=== PATIENT | male | born 1930 | race Caucasian/White ===

== ENCOUNTER 2018-02-05 10:48 | Inpatient (IN) ==
--- NOTE | 2018-02-05 11:39 | XR ---
EXAM DATE: 02/05/2018 11:36 AM EST AGE/SEX: 87 years / Male INDICATIONS: . Short of breath CLINICAL DATA: This is the patient's initial encounter. Patient reports that signs and symptoms have been present for 2 days and indicates a pain score of 0/10. MEDICAL/SURGICAL HISTORY: Cardiovascular disease. None. COMPARISON: No prior exams available for comparison. FINDINGS: Frontal and lateral views of the chest demonstrate a normal-sized cardiac silhouette with mildly tort uous and calcified descending thoracic aorta. There are areas of interstitial prominence bilaterally primarily in the lower lung zones. No pleural effusion, airspace consolidation, or pneumothorax is id entified. The bones and soft tissues demonstrate no acute finding. There are degenerative changes of the thoracic spine. CONCLUSION: No acute cardiopulmonary abnormality is identified. Electronically signed by: Emil Balderas MD Board Certified Radiologist 02/05/2018 11:38 AM EST
[2018-02-05 12:03] LABS: Baso # (Auto) 0.1 th/mm3 (0.0-0.2); Baso % (Auto) 0.6 % (0.0-2.0); Eos # (Auto) 0.2 th/mm3 (0.0-0.4); Eos % (Auto) 2.3 % (0.0-4.0); Hematocrit 36.4 % (39.0-51.0); Hemoglobin 12.6 gm/dL (13.0-17.0); Lymph # (Auto) 0.9 th/mm3 (1.0-4.8); Lymph % (Auto) 9.7 % (9.0-44.0); Mean Corpuscular HGB Conc 34.6 % (32.0-36.0); Mean Corpuscular Hemoglobin 28.9 pg (27.0-34.0); Mean Corpuscular Volume 83.7 fL (80.0-100.0); Mean Platelet Volume 8.2 fL (7.0-11.0); Mono # (Auto) 0.7 th/mm3 (0.0-0.9); Mono % (Auto) 7.4 % (0.0-8.0); Neut # (Auto) 7.5 th/mm3 (1.8-7.7); Platelet Count 280 th/mm3 (150-450); Red Blood Count 4.35 mil/mm3 (4.50-5.90); White Blood Count 9.4 th/mm3 (4.0-11.0)
[2018-02-05 12:15] LABS: Alanine Aminotransferase 16 U/L (12-78); Albumin 3.8 g/dL (3.4-5.0); Anion Gap 10 meq/L (5-15); Aspartate Aminotransferase 19 U/L (15-37); Blood Urea Nitrogen 25 mg/dL (7-18); Carbon Dioxide 25.2 meq/L (21.0-32.0); Chloride 108 meq/L (98-107); Glomerular Filtration Rate 60 mL/min (>89); Glucose,Random 134 mg/dL (74-106); Potassium 3.7 meq/L (3.5-5.1); Sodium 143 meq/L (136-145)
[2018-02-05 12:19] LABS: Alkaline Phosphatase 100 U/L (45-117); Total Protein 7.8 g/dL (6.4-8.2)
--- NOTE | 2018-02-05 13:40 | ED ---
HPI General Chief complaint: Altered Mental Status Stated complaint: Poss AMS Time Seen by Provider: 02/05/18 11:04 Source: patient Mode of arrival: ambulatory Limitations: no limitations History of Present Illness HPI narrative: Patient is an 87-year-old male, past medical history significant for hypertension, hyperlipidemia, COPD without current oxygen requirement at home (though told by a physician once that he needed it) who presents with complaint of hypoxia. He went to his primary care doctor today for a routine exam. There he was found to have a pulse ox in the 80s and was sent here to be evaluated. They were also concerned about possible confusion the patient's states that he is at his baseline at this time. The patient adamantly denies chest pain, shortness of breath, leg swelling, immobilization. He does have a sporadic nonproductive cough but no fever nor chills. He adamantly states that he feels "just fine" and wants to go home. Onset (ago): unknown Severity: mild Relieving factors: none Exacerbating factors: none Treatments prior to arrival: Reports none Related Data Home Medications Medication Instructions Recorded Confirmed alprazolam 0.125 mg PO HS 02/05/18 02/05/18 budesonide-formoterol [Symbicort] 2 puff INHALATION BID 02/05/18 02/05/18 cholecalciferol (vitamin D3) 1,000 unit PO DAILY 02/05/18 02/05/18 ferrous sulfate 324 mg PO DAILY 02/05/18 02/05/18 lisinopril 10 mg PO DAILY 02/05/18 02/05/18 mirabegron [Myrbetriq] 25 mg PO DAILY 02/05/18 02/05/18 sertraline 50 mg PO DAILY 02/05/18 02/05/18 simvastatin 40 mg PO QPM 02/05/18 02/05/18 tamsulosin 0.4 mg PO DAILY 02/05/18 02/05/18 theophylline 400 mg PO DAILY 02/05/18 02/05/18 tiotropium bromide [Spiriva with 1 cap INHALATION DAILY 02/05/18 02/05/18 HandiHaler] Allergies Allergy/AdvReac Type Severity Reaction Status Date / Time No Known Allergies Allergy Verified 02/05/18 10:55 Review of Systems ROS: all other systems reviewed are negative [facility] Medical History Medical History Brain bleed (Acute) COPD (chronic obstructive pulmonary disease) (Acute) Emphysema lung (Acute) HTN (hypertension) (Acute) High cholesterol (Acute) Surgical History Surgical History H/O heart artery stent (Acute) Family History Family History Other Patient denies significant medical history Social History Social History Second Hand Smoke Exposure: Yes Smoking Status: Former smoker Tobacco Type: Cigarettes How Often Do You Have a Drink Containing Alcohol: Never Recent Travel in [facility] within the Last 8 Weeks: No Recent Out of Country Travel within the Last 8 Weeks: No Immunization History Tetanus Immunization: Unsure Exam Narrative Exam Narrative: GENERAL: Well-appearing male in no acute distress on nasal cannula SKIN: Focused skin assessment warm/dry. HEAD: Atraumatic. Normocephalic. EYES: Pupils equal and round. No scleral icterus. No injection or drainage. ENT: No nasal bleeding or discharge. Mucous membranes pink and moist. NECK: Trachea midline. No JVD. CARDIOVASCULAR: Regular rate and rhythm. No murmur appreciated. Intact and equal peripheral pulses. RESPIRATORY: No accessory muscle use. Clear to auscultation. Breath sounds equal bilaterally. GASTROINTESTINAL: Abdomen soft, non-tender, nondistended. Hepatic and splenic margins not palpable. MUSCULOSKELETAL: No obvious deformities. No clubbing. No cyanosis. No edema. NEUROLOGICAL: Awake and alert. No obvious cranial nerve deficits. Motor grossly within normal limits. Normal sensation. Normal speech. PSYCHIATRIC: Appropriate mood and affect; insight and judgment normal. Course Initial Documented Vital Signs Temperature 98.3 F 02/05/18 10:51 Pulse Rate 95 H 02/05/18 10:51 Respiratory Rate 20 02/05/18 10:51 Blood Pressure 124/60 02/05/18 10:51 Pulse Oximetry 89 L 02/05/18 10:51 Last Documented Vital Signs Temperature 98.3 F 02/05/18 10:51 Pulse Rate 84 02/05/18 11:51 Respiratory Rate 16 02/05/18 11:51 Blood Pressure 129/63 02/05/18 11:15 Pulse Oximetry 92 L 02/05/18 12:29 Medical Decision Making MDM Narrative Medical decision making narrative: Patient is an 87-year-old male who presents with complaint of nausea. He states he feels well and is asymptomatic. On room air his pulse ox was approximately 85 thus he is requiring approximately 2- 3 L of oxygen via nasal cannula. He has been told this once before but states another physician told him he did not need it. Labs, chest x-ray are unremarkable. I discussed the case with Dr. Devon benites regarding admission for his hypoxia. After discussing it with case management Dr. Osorio he recommended that the patient be discharged home with oxygen as he has been asymptomatic and feels well. 1350: CM has informed me that the patient cannot be discharged from the ED with oxygen. The patient has been placed in observation by Dr Osorio for his hypoxia. Medical Screen Exam Complete: Yes Emergency Medical Condition: Yes Differential Diagnosis Differential Diagnosis: Differential diagnosis includes but is not limited to pneumothorax, pneumonia, progression of COPD. Medical Records Medical records reviewed: Yes I reviewed the patient's medical records. Lab Data Lab results reviewed: Yes I reviewed the patient's lab results. Result diagrams: 02/05/18 11:15 02/05/18 11:15 Lab Results 02/05/18 02/05/18 02/05/18 Range/Units 11:15 11:15 11:15 WBC 9.4 (4.0-11.0) th/mm3 RBC 4.35 L (4.50-5.90) mil/mm3 Hgb 12.6 L (13.0-17.0) gm/dL Hct 36.4 L (39.0-51.0) % MCV 83.7 (80.0-100.0) fL MCH 28.9 (27.0-34.0) pg MCHC 34.6 (32.0-36.0) % RDW 16.0 (11.6-17.2) % Plt Count 280 (150-450) th/mm3 MPV 8.2 (7.0-11.0) fL Neut % (Auto) 80.0 H (16.0-70.0) % Lymph % (Auto) 9.7 (9.0-44.0) % [place] % (Auto) 7.4 (0.0-8.0) % Eos % (Auto) 2.3 (0.0-4.0) % Baso % (Auto) 0.6 (0.0-2.0) % Neut # (Auto) 7.5 (1.8-7.7) th/mm3 Lymph # (Auto) 0.9 L (1.0-4.8) th/mm3 [place] # (Auto) 0.7 (0.0-0.9) th/mm3 Eos # (Auto) 0.2 (0.0-0.4) th/mm3 Baso # (Auto) 0.1 (0.0-0.2) th/mm3 WBC Differential . Differential Comment Auto diff final Sodium 143 (136-145) meq/L Potassium 3.7 (3.5-5.1) meq/L Chloride 108 H (98-107) meq/L Carbon Dioxide 25.2 (21.0-32.0) meq/L Anion Gap 10 (5-15) meq/L BUN 25 H (7-18) mg/dL Creatinine 1.15 (0.60-1.30) mg/dL Estimated GFR 60 L (>89) mL/min Random Glucose 134 H (74-106) mg/dL Calcium 9.0 (8.5-10.1) mg/dL Total Bilirubin 0.4 (0.2-1.0) mg/dL AST 19 (15-37) U/L ALT 16 (12-78) U/L Alkaline Phosphatase 100 (45-117) U/L Troponin I Less than 0.02 L (0.02-0.05) ng/mL B-Natriuretic Peptide 60 (0-100) pg/mL Total Protein 7.8 (6.4-8.2) g/dL Albumin 3.8 (3.4-5.0) g/dL Imaging Data Attestation: I personally reviewed and interpreted this imaging study as follows : Radiologist's impression: Chest X-Ray 02/05/18 11:16 CONCLUSION: No acute cardiopulmonary abnormality is identified. ECG Data EKG Prior to Arrival: No Attestation: I personally reviewed and interpreted this ECG as follows: Discharge Plan Discharge Disposition Patient Disposition: ED Admit(ED Internal Use Only) Discharge Condition Condition: Stable Discharge Order Discharge Orders: ED Use Only Admit Order (Routine); Ordered 02/05/18 Ordered By: Keturah Nelson Discharge Details Diagnosis: COPD with hypoxia Physicians Team ED Provider: Keturah Nelson Primary Care Provider: [facility] 's Attending Provider: Tony Osorio Status ED Status: With Doctor
--- NOTE | 2018-02-05 14:24 | P.HP ---
History of Present Illness Primary Care Physician: [facility] History of Present Illness: 87-year-old white male being admitted for acute hypoxic respiratory failure. Patient was in his usual state of health until he attended his scheduled outpatient PCP appointment today where he was noted to be hypoxic around 83%. He was sent over to the ED for further evaluation. Patient reports having dyspnea on exertion and some level of fatigue, but denies having any chest pain. His is at the bedside says that he is other major complaint that is chronic is pains in his shoulders and calves for which he is seeing his PCP for. reports his been compliant with his Symbicort and Spiriva. Says that he has seen a carbon furnace operator in the past, coming out of the jail earlier this year he was told he needed oxygen but when [facility]. Social history tells that the patient is a lifelong history of smoking 75 years. Denies drinking. Lives with his . Review of Systems All other systems reviewed negative except as stated in HPI PMFSH - History History Provided By: Patient, Family Member - Medical History Medical History: Medical History (Last Reviewed 02/05/18 @ 14:22 by Tony Osorio MD) Brain bleed COPD (chronic obstructive pulmonary disease) Emphysema lung HTN (hypertension) High cholesterol - Surgical History Surgical History: Surgical History (Last Reviewed 02/05/18 @ 14:22 by Tony Osorio MD) H/O heart artery stent - Family History Family History: Family History (Last Updated 02/05/18 @ 14:22 by Tony Osorio MD) Other Patient denies significant medical history - Social History I have reviewed the patient's Social History: Yes - Tobacco History Second Hand Smoke Exposure: Yes Smoking Status: Former smoker Tobacco Type: Cigarettes - Alcohol History How Often Do You Have a Drink Containing Alcohol: Never - Travel History Recent Travel in the [place] Within the Last 8 Weeks: No Recent Travel Out of the Country Within the Last 8 Weeks: No - Immunization History Tetanus Immunization: Unsure Medications and Allergies Active Medications: Active Medications Albuterol (Albuterol Neb (Prn)) 1.25 mg NEB Q2HR NEB PRN PRN Reason: WHEEZING Alprazolam (Xanax) 0.125 mg PO HS [facility] Budesonide/Formoterol Fumarate (Symbicort 160/4.5 Mcg Inh) 2 puff INH BID [facility] Non-Formulary Medication (Theophylline [Theophylline]) 400 mg PO DAILY [facility] Sertraline HCl (Zoloft) 50 mg PO DAILY [facility] Sodium Chloride (Ns Flush) 2 ml IV.FLUSH BID [facility] Sodium Chloride (Ns Flush) 2 ml IV.FLUSH PRN PRN PRN Reason: FLUSH AFTER USING IV ACCESS Tiotropium Lucile (Spiriva 18 Mcg Inh) mcg INH DAILY [facility] Allergies Allergy/AdvReac Type Severity Reaction Status Date / Time No Known Allergies Allergy Verified 02/05/18 10:55 Home Medications Medication Instructions Recorded Confirmed Type alprazolam 0.125 mg PO HS 02/05/18 02/05/18 History budesonide-formoterol [Symbicort] 2 puff INHALATION BID 02/05/18 02/05/18 History cholecalciferol (vitamin D3) 1,000 unit PO DAILY 02/05/18 02/05/18 History ferrous sulfate 324 mg PO DAILY 02/05/18 02/05/18 History lisinopril 10 mg PO DAILY 02/05/18 02/05/18 History mirabegron [Myrbetriq] 25 mg PO DAILY 02/05/18 02/05/18 History sertraline 50 mg PO DAILY 02/05/18 02/05/18 History simvastatin 40 mg PO QPM 02/05/18 02/05/18 History tamsulosin 0.4 mg PO DAILY 02/05/18 02/05/18 History theophylline 400 mg PO DAILY 02/05/18 02/05/18 History tiotropium bromide [Spiriva with 1 cap INHALATION DAILY 02/05/18 02/05/18 History HandiHaler] Exam Vital signs: Vital Signs 02/05/18 10:51 02/05/18 11:08 02/05/18 11:15 Temperature 98.3 F Pulse Rate 95 H 79 Respiratory Rate 20 22 Blood Pressure 124/60 129/63 Pulse Oximetry 89 L 95 02/05/18 11:39 02/05/18 11:51 02/05/18 12:29 Temperature Pulse Rate 82 84 Respiratory Rate 16 Blood Pressure Pulse Oximetry 93 L 92 L Intake & Output 02/04/18 02/05/18 02/05/18 18:59 06:59 18:59 Weight 53.524 kg Narrative: VS: afebrile GENERAL: Well-nourished thin elderly male, awake, no acute distress, appears slightly fatigued SKIN: Warm and dry. EYES: Pupils equal and round. No scleral icterus. No injection or drainage. ENT: No nasal bleeding or discharge. Mucous membranes pink and moist. CARDIOVASCULAR: Regular rate and rhythm. no murmurs RESPIRATORY: No accessory muscle use. Clear to auscultation. Breath sounds equal bilaterally. GASTROINTESTINAL: Abdomen soft, non-tender, nondistended. Extremities: No clubbing, cyanosis, or edema. No obvious deformities. MUSCULOSKELETAL: grossly intact ROM with 5/5 strength in upper extremities proximally, 4/5 strength in proximal hip flexors bilaterally NEUROLOGICAL: Awake and alert. No obvious cranial nerve deficits. No facial droop nor slurred speech noted. PSYCHIATRIC: Appropriate mood and affect; insight and judgment normal. Results - Labs CBC & Chem 7: 02/05/18 11:15 02/05/18 11:15 Labs: Laboratory Results - last 24 hr 02/05/18 02/05/18 02/05/18 11:15 11:15 11:15 WBC 9.4 RBC 4.35 L Hgb 12.6 L Hct 36.4 L MCV 83.7 MCH 28.9 MCHC 34.6 RDW 16.0 Plt Count 280 MPV 8.2 Neut % (Auto) 80.0 H Lymph % (Auto) 9.7 [place] % (Auto) 7.4 Eos % (Auto) 2.3 Baso % (Auto) 0.6 Neut # (Auto) 7.5 Lymph # (Auto) 0.9 L [place] # (Auto) 0.7 Eos # (Auto) 0.2 Baso # (Auto) 0.1 WBC Differential . Differential Comment Auto diff final Sodium 143 Potassium 3.7 Chloride 108 H Carbon Dioxide 25.2 Anion Gap 10 BUN 25 H Creatinine 1.15 Estimated GFR 60 L Random Glucose 134 H Calcium 9.0 Total Bilirubin 0.4 AST 19 ALT 16 Alkaline Phosphatase 100 Troponin I Less than 0.02 L B-Natriuretic Peptide 60 Total Protein 7.8 Albumin 3.8 - Imaging Impressions Chest X-Ray 02/05/18 11:16 CONCLUSION: No acute cardiopulmonary abnormality is identified. Caprini VTE Risk Assessment Caprini VTE Risk Assessment: Moderate/High Risk (score >= 2) Caprini Risk Assessment Model: Point Value = 1 Point Value = 2 Point Value = 3 Point Value = 5 Age 41-60 Minor surgery BMI > 25 kg/m2 Swollen legs Varicose veins or History of unexplained or recurrent spontaneous Oral contraceptives or hormone replacement Sepsis (< 1 month) Serious lung disease, including pneumonia (< 1 month) Abnormal pulmonary function Acute myocardial infarction Congestive heart failure (< 1 month) History of inflammatory bowel disease Medical patient at bed rest Age 61-74 Arthroscopic surgery Major open surgery (> 45 min) Laparoscopic surgery (> 45 min) Malignancy Confined to bed (> 72 hours) Immobilizing plaster cast Central venous access Age >= 75 History of VTE Family history of VTE Factor V Leiden Prothrombin [id number] Lupus anticoagulant Anticardiolipin antibodies Elevated serum homocysteine Heparin-induced thrombocytopenia Other congenital or acquired thrombophilia Stroke (< 1 month) Elective arthroplasty Hip, pelvis, or leg fracture Acute spinal cord injury (< 1 month) Prophylaxis Regimen: Total Risk Factor Score Risk Level Prophylaxis Regimen 0-1 Low Early ambulation 2 Moderate Order ONE of the following: *Sequential Compression Device (SCD) *Heparin 5000 units SQ BID 3-4 Higher Order ONE of the following medications: *Heparin 5000 units SQ TID *Enoxaparin/Lovenox 40 mg SQ daily (WT < 150 kg, CrCl > 30 mL/min) *Enoxaparin/Lovenox 30 mg SQ daily (WT < 150 kg, CrCl > 10-29 mL/min) *Enoxaparin/Lovenox 30 mg SQ BID (WT < 150 kg, CrCl > 30 mL/min) AND/OR *Sequential Compression Device (SCD) 5 or more Highest Order ONE of the following medications: *Heparin 5000 units SQ TID (Preferred with Epidurals) *Enoxaparin/Lovenox 40 mg SQ daily (WT < 150 kg, CrCl > 30 mL/min) *Enoxaparin/Lovenox 30 mg SQ daily (WT < 150 kg, CrCl > 10-29 mL/min) *Enoxaparin/Lovenox 30 mg SQ BID (WT < 150 kg, CrCl > 30 mL/min) AND *Sequential Compression Device (SCD) Assessment and Plan - Plan 87-year-old white male being admitted for possible acute on chronic hypoxic respiratory failure Possible acute on chronic hypoxic respiratory failure 83% in PCPs office today, on 88% today on pulse oximetry likely secondary to emphysema/COPD Symptomatic w/ exertion, give 1x solumedrol, dc with prednisone taper -we will supply oxygen for now until home oxygen supply secured after patient wonders walk test COPD Continue home Spiriva and Symbicort -Albuterol as needed for wheezing -po prednisone taper upon discharge Coronary artery disease Hyperlipidemia Hypertension -Continue home lisinopril and simvastatin BPH Urinary incontinence Continue home Myrbetriq and Flomax Mild memory impairment -check b12 and TSH levels Shoulder and calf pains Stable at this time, likely musculoskeletal or neurogenic, continue follow-up w / PCP outpt SCDs given hx of brain bleed
[2018-02-05] MEDS ORDERED: MethylPREDNISolone Sod Succinate Inj 125 MG/2 ML Vial IV.PUSH ONE (16:00)
--- NOTE | 2018-02-05 17:41 | ECG ---
Date Performed: 02/05/2018 Time Performed: 11:06:20 PTAGE: 87 years EKG: Sinus rhythm MINOR NONSPECIFIC ST WAVE CHANGE ELECTRICAL BASELINE ARTIFACT NORMAL ECG NO PREVIOUS TRACING DOCTOR: Elian Ayon Interpretating Date/Time 02/05/2018 17:40:33
[2018-02-05] MEDS ORDERED: ALPRAZolam 0.25 MG Tablet PO SCH (21:00)
[2018-02-05] MEDS: Budesonide-Formoterol 160/4.5 MCG 6 GM Inhaler INH SCH (23:07)
[2018-02-06] MEDS ORDERED: Tiotropium Bromide 18 MCG/ACT Inhaler INH SCH (09:00)
[2018-02-06] MEDS ORDERED: Tolterodine Tartrate LA 2 MG Capsule PO SCH (09:00)
[2018-02-06] MEDS ORDERED: predniSONE 20 MG Tablet PO SCH (09:00)
[2018-02-06] MEDS ORDERED: Sertraline 50 MG Tablet PO SCH (09:00)
[2018-02-06] MEDS ORDERED: Theophylline ER 24 HR 200 MG Capsule PO SCH (09:00)
[2018-02-06] MEDS ORDERED: Lisinopril 10 MG Tablet PO SCH (09:00)
[2018-02-06] MEDS ORDERED: Ferrous Sulfate 325 MG Tablet PO SCH (09:00)
--- NOTE | 2018-02-06 10:20 | P.PNIM ---
Subjective Interval history: Follow-up visit hypoxia, COPD exacerbation. Patient seen and examined today. at the bedside. States that breathing has improved significantly compared to yesterday. Patient states that he is compliant with his medications. Denies any sputum production. Occasional cough. Denies any increasing shortness of breath or dyspnea. On O2 nasal cannula right now. Discussed with patient and that he will need a walk test. Possibly will be needing oxygen use at home. States that he has nebulizers at home. And [facility]. Denies pain and discomfort. Denies chest pain, palpitations, headaches, dizziness. Denies fevers, chills, n/v/d. Denies dysuria. Physical Exam Vital signs: Vital Signs 02/05/18 10:51 02/05/18 11:08 02/05/18 11:15 Temperature 98.3 F Pulse Rate 95 H 79 Respiratory Rate 20 22 Blood Pressure 124/60 129/63 Pulse Oximetry 89 L 95 Pulse Oximetry [Resting on Room Air] Pulse Oximetry [Resting with Oxygen] 02/05/18 11:39 02/05/18 11:51 02/05/18 12:29 Temperature Pulse Rate 82 84 Respiratory Rate 16 Blood Pressure Pulse Oximetry 93 L 92 L Pulse Oximetry [Resting on Room Air] Pulse Oximetry [Resting with Oxygen] 02/05/18 13:00 02/05/18 14:00 02/05/18 15:01 Temperature Pulse Rate 82 82 Respiratory Rate 20 19 Blood Pressure 124/71 Pulse Oximetry 92 L 88 L Pulse Oximetry [Resting on Room Air] 85 L Pulse Oximetry [Resting with Oxygen] 91 L 02/05/18 15:35 02/05/18 16:00 02/05/18 17:00 Temperature Pulse Rate 80 80 Respiratory Rate Blood Pressure 137/73 142/78 H Pulse Oximetry 93 L 95 95 Pulse Oximetry [Resting on Room Air] Pulse Oximetry [Resting with Oxygen] 02/05/18 18:27 02/05/18 20:00 02/06/18 01:47 Temperature 98.3 F 97.8 F Pulse Rate 85 89 80 Respiratory Rate 16 18 18 Blood Pressure 151/80 H 134/75 134/65 Pulse Oximetry 92 L 90 L Pulse Oximetry [Resting on Room Air] Pulse Oximetry [Resting with Oxygen] 02/06/18 05:40 02/06/18 08:00 Temperature 97.5 F L 97.4 F L Pulse Rate 66 72 Respiratory Rate 18 20 Blood Pressure 133/62 128/61 Pulse Oximetry 93 L 95 Pulse Oximetry [Resting on Room Air] Pulse Oximetry [Resting with Oxygen] Intake & Output 02/05/18 02/06/18 02/06/18 18:59 06:59 18:59 Weight 53.524 kg 51.5 kg Other: # Voids 1 Narrative: VS: afebrile GENERAL: Well-nourished thin elderly male, awake, no acute distress, appears slightly fatigued SKIN: Warm and dry. EYES: Pupils equal and round. No scleral icterus. No injection or drainage. ENT: No nasal bleeding or discharge. Mucous membranes pink and moist. CARDIOVASCULAR: Regular rate and rhythm. no murmurs RESPIRATORY: No accessory muscle use. Clear to auscultation. Breath sounds equal bilaterally. No wheezing. GASTROINTESTINAL: Abdomen soft, non-tender, nondistended. Extremities: No clubbing, cyanosis, or edema. No obvious deformities. MUSCULOSKELETAL: grossly intact ROM with 5/5 strength in upper extremities proximally, 4/5 strength in proximal hip flexors bilaterally NEUROLOGICAL: Awake and alert. No obvious cranial nerve deficits. No facial droop nor slurred speech noted. PSYCHIATRIC: Appropriate mood and affect; insight and judgment normal. Results - Labs CBC & Chem 7: 02/05/18 11:15 02/05/18 11:15 Laboratory Results - last 24 hr 02/05/18 02/05/18 02/05/18 11:15 11:15 11:15 WBC 9.4 RBC 4.35 L Hgb 12.6 L Hct 36.4 L MCV 83.7 MCH 28.9 MCHC 34.6 RDW 16.0 Plt Count 280 MPV 8.2 Neut % (Auto) 80.0 H Lymph % (Auto) 9.7 [place] % (Auto) 7.4 Eos % (Auto) 2.3 Baso % (Auto) 0.6 Neut # (Auto) 7.5 Lymph # (Auto) 0.9 L [place] # (Auto) 0.7 Eos # (Auto) 0.2 Baso # (Auto) 0.1 WBC Differential . Differential Comment Auto diff final Sodium 143 Potassium 3.7 Chloride 108 H Carbon Dioxide 25.2 Anion Gap 10 BUN 25 H Creatinine 1.15 Estimated GFR 60 L Random Glucose 134 H Calcium 9.0 Total Bilirubin 0.4 AST 19 ALT 16 Alkaline Phosphatase 100 Troponin I Less than 0.02 L B-Natriuretic Peptide 60 Total Protein 7.8 Albumin 3.8 Vitamin B12 TSH 02/05/18 02/05/18 11:52 11:52 WBC RBC Hgb Hct MCV MCH MCHC RDW Plt Count MPV Neut % (Auto) Lymph % (Auto) [place] % (Auto) Eos % (Auto) Baso % (Auto) Neut # (Auto) Lymph # (Auto) [place] # (Auto) Eos # (Auto) Baso # (Auto) WBC Differential Differential Comment Sodium Potassium Chloride Carbon Dioxide Anion Gap BUN Creatinine Estimated GFR Random Glucose Calcium Total Bilirubin AST ALT Alkaline Phosphatase Troponin I B-Natriuretic Peptide Total Protein Albumin Vitamin B12 690 TSH 1.990 Microbiology 02/05/18 11:20 Nasal Wash Influenza Types A,B Antigen - Final Negative for FLU A and B antigen Infection due to influenza A or B cannot be ruled out since the antigen present in the sample may be below the detection limit of the test. - Imaging Impressions Chest X-Ray 02/05/18 11:16 CONCLUSION: No acute cardiopulmonary abnormality is identified. Assessment and Plan - Plan 87-year-old white male being admitted for possible acute on chronic hypoxic respiratory failure Possible acute on chronic hypoxic respiratory failure 83% in PCPs office, on 88% on pulse oximetry ED likely secondary to emphysema/COPD Symptomatic w/ exertion, given 1x solumedrol -prednisone 20mg BID, taper dose to go home -Walk Test needing O2 at home for [facility] -Reports improvement with breathing. Has nebulizer at home. 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 Davis Discharge Planning: Plan to DC home today with O2 is delivered to home.
[2018-02-06] MEDS: Budesonide-Formoterol 160/4.5 MCG 6 GM Inhaler INH SCH (10:50)
== END 2018-02-06 16:30 | disposition home or self-care (01) ==
LOC: NEPE 10:48 → NEDA 10:48 → N05 18:45
PROVIDERS: ADMIT Hospitalist; ATTEND Hospitalist